=== PATIENT | female | born 1965 | race Two or more races ===

== ENCOUNTER 2017-04-11 15:22 | Emergency (ER) | payer OTHER ==
[2017-04-11 15:38] VITALS: BP 118/73; PULSE 73; TEMP 98.3; BMI 19.0
[2017-04-11] MEDS ORDERED: KETOROLAC TROMETHAMINE 60 MG/2 ML VIAL IM ONE (16:31)
[2017-04-11] MEDS ORDERED: KETOROLAC TROMETHAMINE 60 MG/2 ML VIAL ONE (16:33)
--- NOTE | 2017-04-11 16:38 | PDOC ---
History of Present Illness - General Chief Complaint: Back Pain Stated Complaint: BACK PAIN/INJURY Time Seen by Provider: 04/11/17 16:06 History Source: Patient Exam Limitations: No Limitations - History of Present Illness Initial Comments: 04/11/17 16:39 My chief complaint: Lower back pain History of present illness: Patient is a 51-year-old female with no significant medical history here today complaining of mid lower back pain since this morning. 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 Patient denies any radiation of pain down the legs any saddle anesthesia or weakness of legs or numbness of legs or any incontinency. Patient denies any previous back injuries. Patient reports that she did let family services no that she was hurt at work this morning at approximately 8:30 AM. Patient took acetaminophen earlier today without relief of pain. Patient reports that currently pain is a 10 out of 10. Patient denies any muscle spasms of lower back. Patient denies any chance of . Occurred: reports: this morning Severity: reports: severe Pain Location: reports: back (lower mid back ) Method of Injury: Yes: other (holding her pt. from falling ) Modifying Factors: improves with: None Loss of Consciousness: no loss of consciousness Associated Symptoms (Fall): denies symptoms Past History - Past Medical History Allergies/Adverse Reactions: Allergies Allergy/AdvReac Type Severity Reaction Status Date / Time Penicillins Allergy Verified 04/11/17 15:37 Home Medications: Ambulatory Orders Naproxen [Naprosyn -] 500 mg PO BID PRN #14 tablet 04/11/17 - Psycho/Social/Smoking Cessation Hx Suicidal Ideation: No Smoking History: Never smoked Information on smoking cessation initiated: No Hx Alcohol Use: No Drug/Substance Use Hx: No Substance Use Type: None Review of Systems - Review of Systems Able to Perform ROS?: Yes Constitutional: No: Symptoms Reported HEENTM: No: Symptoms Reported Respiratory: No: Symptoms reported Cardiac (ROS): No: Symptoms Reported ABD/GI: No: Symptoms Reported : No: Symptoms Reported Musculoskeletal: Yes: Back Pain (lower mid back pain ) Integumentary: No: Symptoms Reported Neurological: No: Symptoms reported *Physical Exam - Vital Signs Last Vital Signs Temp Pulse Resp BP Pulse Ox 98.3 F 73 18 118/73 100 04/11/17 15:35 04/11/17 15:35 04/11/17 15:35 04/11/17 15:35 04/11/17 15:35 - Physical Exam General Appearance: Yes: Appropriately Dressed Respiratory/Chest: positive: Lungs Clear, Normal Breath Sounds. negative: Chest Tender, Respiratory Distress Cardiovascular: positive: Regular Rhythm, Regular Rate, S1, S2 Musculoskeletal: positive: Normal Inspection, Decreased Range of Motion ( flexion at waist ), Other (paraspinal muscles lumbar ). negative: CVA Tenderness, CVA Tenderness (R), CVA Tenderness (L), Muscle Spasm, Vertebral Tenderness Extremity: positive: Normal Capillary Refill, Normal Inspection, Normal Range of Motion Integumentary: positive: Normal Color Neurologic: positive: Normal Response, Motor Strength 5/5, Respond to painful stimul (legs b/l ), Responsive. negative: Numbness, Sensory Deficit (legs ) Deep Tendon Reflexes: Ankle (L): 4+, Ankle (R): 4+, Knee (L): 4+, Knee (R): 4+ Medical Decision Making - Medical Decision Making 04/11/17 16:42 Patient is a 51-year-old female with no significant medical history here today complaining of mid lower back pain since this morning. 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 Patient denies any radiation of pain down the legs any saddle anesthesia or weakness of legs or numbness of legs or any incontinency. Patient denies any previous back injuries. Patient reports that she did let [employer] services no that she was hurt at work this morning at approximately 8:30 AM. Patient took acetaminophen earlier today without relief of pain. Patient reports that currently pain is a 10 out of 10. Patient denies any muscle spasms of lower back. Patient denies any chance of . Mid lower back pain r/o tremaine abnormality PLAN: TORADOL 60 MG IM NOW XRAY SPINE LUMBAR SACRAL NO ACUTE FRACTURE NOTED 04/11/17 18:03 NAPROSYN 500 MG BID PRN PAIN x 14 TABS 04/11/17 18:36 *DC/Admit/Observation/Transfer Diagnosis at time of Disposition: Low back pain Qualifiers: Chronicity: acute Back pain laterality: midline Sciatica presence: without sciatica Qualified Code(s): M54.5 - Low back pain - Discharge Dispostion Disposition: HOME Condition at time of disposition: Stable - Prescriptions Prescriptions: Naproxen [Naprosyn -] 500 mg PO BID PRN #14 tablet PRN Reason: Pain - Referrals Referrals: STAFF,NOT ON [Primary Care Provider] - Randy Cabral MD [Staff Physician] - - Patient Instructions Additional Instructions: Avoid any exercise or lifting Return to emergency department with any increased pain, radiating down leg. Any numbness of legs or groin , or loss of control of bowel or bladder movements. Follow up with orthopedist as soon as possible Patient voiced understanding of discharge instructions and all questions were answered Thank you for choosing [facility] for you medical care. - Post Discharge Activity Work/School Note: Back to Work
== END 2017-04-11 18:07 | disposition home or self-care (01) ==
LOC: JERFT 15:22
PROC: 3E0233Z Introduction of Anti-inflammatory into Muscle, Percutaneous Approach (ICD-10-PCS; principal; 2017-04-11)
DX: M54.5 Low back pain (principal); X50.0XXA Overexertion from strenuous movement or load, initial encounter; Y93.F9 Activity, other caregiving; Y92.89 Other specified places as the place of occurrence of the external cause; Y99.0 Civilian activity done for income or pay
CPT/HCPCS: 72100-TC; 96372; 99281-25

== ENCOUNTER 2024-01-13 04:23 | Day surgery (SDC) | payer OTHER ==
[2024-01-06 16:01] VITALS: BMI 21.2
[2024-01-13 10:20] VITALS: TEMP 98
[2024-01-13 10:44] VITALS: RESP 18
[2024-01-13 10:57] VITALS: BP 114/60; PULSE 59
== END 2024-01-13 11:05 | disposition home or self-care (01) ==
LOC: JASU-ENDO 04:23
PROVIDERS: ATTEND Internal Medicine Gastroenterology
PROC: 0DBP8ZX Excision of Rectum, Via Natural or Artificial Opening Endoscopic, Diagnostic (ICD-10-PCS; principal; 2024-01-13 08:45)
DX: Z12.11 Encounter for screening for malignant neoplasm of colon (principal); K63.89 Other specified diseases of intestine; K64.8 Other hemorrhoids; Z86.010 Personal history of colon polyps
CPT/HCPCS: 88305-TC